=== PATIENT | female | born 1995 | race Asian ===

== ENCOUNTER 2017-08-26 21:30 | Emergency (ER) | payer OTHER ==
[2017-08-26] MEDS ORDERED: NS 0.9% 1000 ML* 1,000 ML IV ONE (22:12)
[2017-08-26] MEDS ORDERED: methylPREDNISolone SOD 40 MG* 1 ML VIAL IV ONE (22:17)
[2017-08-26 23:00] LABS: ABS Basophils 0 10^3/ul (0-0.2); ABS Eosinophils 0.1 10^3/ul (0-0.6); ABS Lymphocytes 2.9 10^3/ul (1.0-4.8); ABS Monocytes 0.4 10^3/ul (0-0.8); ABS Neutrophils 2.8 10^3/ul (1.5-7.7); ABS Nucleated RBC 0 10^3/ul; Eosinophil % 1.6 % (0-6); Hematocrit 40 % (35-47); Hemoglobin 13.4 g/dl (12.0-16.0); Mean Corpuscular HGB Conc 33 g/dl (31-36); Mean Corpuscular Hemoglobin 31 pg (27-31); Mean Corpuscular Volume 93 fL (80-97); Mean Platelet Volume 8 um3 (7.4-10.4); Nucleated Red Blood Cells % 0.1; Platelet Count 301 10^3/ul (150-450); Red Blood Count 4.33 10^6/ul (4.0-5.4); Red Cell Distribution Width 13 % (10.5-15); White Blood Count 6.2 10^3/ul (3.5-10.8)
--- NOTE | 2017-08-26 23:00 | ED ---
Addy Xavier Stephanie, scribed for Edilberto Malone MD on 08/26/17 at 2216 . Skin Complaint - HPI Summary HPI Summary: The pt is a 22 y/o F presenting to the ED with c/o generalized rash/hives that began 2 days ago. The pt states she has hx or rash with an unknown trigger. Pt recently prescribed antibiotic from [place] for Cystitis. Pt unsure of name of antibiotic. Pt denies angioedema, rash in mouth, SOB, joint pain, hair loss and wheezing. Pt believes the rash starts after showering with hot water. - History of Current Complaint Chief Complaint: EDAllergicReaction Time Seen by Provider: 08/26/17 21:59 Stated Complaint: ALLERGIC REACTION Hx Obtained From: Patient Onset/Duration: Started Days Ago - 2 Timing: Constant Current Severity: None Pain Intensity: 0 Pain Scale Used: 0-10 Numeric Character: Exposure to Heat Intermittent Aggravating Symptom(s): Showering - hot water Alleviating Symptom(s): Nothing Associated Signs & Symptoms: Rash - Allergy/Home Medications Allergies/Adverse Reactions: Allergies Allergy/AdvReac Type Severity Reaction Status Date / Time No Known Allergies Allergy Verified 08/26/17 21:55 PMH/Surg Hx/FS Hx/Imm Hx Sensory History: Reports: Hx Contacts or Glasses EENT History: Denies: Hx Deafness - Surgical History Surgery Procedure, Year, and Place: none Infectious Disease History: No Infectious Disease History: Reports: Traveled Outside the [place] in Last 30 Days - Family History Known Family History: Positive: Unknown - Reviewed and non-contributory - Social History Occupation: Student Lives: Dormitory/Roommates Alcohol Use: Rare Review of Systems Positive: Fever, Other - negative: hair loss Positive: Other - Negative:rash in mouth Positive: Other - Negative: wheezing. Negative: Shortness Of Breath Positive: Other - Negative: joint pain Positive: Rash - with itching All Other Systems Reviewed And Are Negative: Yes Physical Exam - Summary Physical Exam Summary: Appearance: Well-appearing, Well-nourished Skin: Warm, Dry, large urticaria over arms, face, back, abd. Eyes: Normal, PERRL, EOMI, sclera anicteric ENT: Normal, No swelling in pharynx Neck: Supple, nontender Respiratory: Clear to auscultation Cardiovascular: S1, S2, no murmur, no rub, no gallop Abdomen: Soft, nontender, no organomegaly Bowel sounds: Present Musculoskeletal: Normal, Strength/ROM Intact, no edema, pulses symmetrical Neurological: Normal, A&Ox3, cranial nerves II-XII WNL, follows commands, gait not tested, sensation intact to pin and light touch Psychiatric: affect normal, behavior appropriate, dressed appropriately, judgment intact Triage Information Reviewed: Yes Vital Signs On Initial Exam: Initial Vitals Temp Pulse Resp BP Pulse Ox 99.9 F 80 16 113/77 98 08/26/17 21:45 08/26/17 21:45 08/26/17 21:45 08/26/17 21:45 08/26/17 21:45 Vital Signs Reviewed: Yes Diagnostics - Vital Signs Vital Signs Temp Pulse Resp BP Pulse Ox 08/26/17 21:45 99.9 F 80 16 113/77 98 - Laboratory Lab Statement: Any lab studies that have been ordered have been reviewed, and results considered in the medical decision making process. Re-Evaluation - Re-Evaluation First Eval Re-Evaluation Time: 22:53 Change: Unchanged - Facial urticaria unchaged. Course/Dx - Course Course Of Treatment: Facial urticaria unchanged at re-eval. The pt will be a sign out to Dr. Casanova at shift change pending dispo. - Diagnoses Provider Diagnoses: urticatia, possibly abx related Discharge - Discharge Plan Condition: Stable Disposition: OTHER Discharge Disposition Comment: The pt is signed out to Dr. Casanova at shift change pending dispo. The documentation as recorded by the Addy swanson Stephanie accurately reflects the service I personally performed and the decisions made by me, Edilberto Malone MD.
[2017-08-26 23:14] LABS: EGFR Non-African American 126.2 (>60)
[2017-08-26] MEDS ORDERED: diPHENhydraMINE IV* 50 MG/ML 1 ml VIAL (BENADRYL) IV ONE (23:31)
[2017-08-26] MEDS ORDERED: hydrOXYzine HCL TAB* 50 MG PO ONE (23:55)
[2017-08-26] MEDS ORDERED: methylPREDNISolone 125 MG* 2 ML VIAL IV ONE (23:55)
[2017-08-26] MEDS ORDERED: EPINEPHrine AMP 1 MG/ML IM ONE (23:55)
--- NOTE | 2017-08-27 01:29 | ED ---
Irena Xavier Gabriel, scribed for Daniel Casanova MD on 08/27/17 at 0121 . Progress - Progress Note Progress Note: This patient was signed out from Dr. Malone, pending disposition, awaiting to see how she respond to her treatment. The patients condition is stable and will be discharged to home with Dx of allergic reaction. Re-Evaluation - Re-Evaluation First Eval Re-Evaluation Time: 22:53 Change: Unchanged - Facial urticaria unchaged. Second Eval Re-Evaluation Time: 01:20 Change: Improved - The patient feels better, her rash has resolved as well as the itching. Course/Dx - Diagnoses Provider Diagnoses: Allergic reaction The documentation as recorded by the Irena swanson Gabriel accurately reflects the service I personally performed and the decisions made by , Daniel Casanova MD.
[2017-08-27 02:24] VITALS: BP 116/73
== END 2017-08-27 02:30 ==
LOC: ED 21:30
DX: L50.9 Urticaria, unspecified (principal); R50.9 Fever, unspecified; R21 Rash and other nonspecific skin eruption
CPT/HCPCS: 36415; 80053; 85025; 85652; 86038; 96372; 96374; 96375; 99284; A9270-GY; J0171; J1200; J2920; J2930

== ENCOUNTER 2017-08-27 21:39 | Emergency (ER) | payer OTHER ==
[2017-08-27] MEDS ORDERED: predniSONE TAB* 20 MG PO ONE (22:11)
[2017-08-27] MEDS ORDERED: hydrOXYzine HCL TAB* 25 MG PO ONE (22:12)
--- NOTE | 2017-08-27 22:58 | ED ---
Irena Xavier Gabriel, scribed for Daniel Casanova MD on 08/27/17 at 2223 . Allergic Reaction/Systemic - HPI Summary HPI Summary: This patient is a 22 year old F presenting to [facility] accompanied by her friends with a chief complaint of hives since 1900 tonight. The patient rates the pain 1 /10 in severity. Patient reports chills and pain. Patient denies itching. The patient was seen in the ED last night for a reaction to an antibiotic and was sent home after they resolved with a Rx. She did not pickup her Rx and the hives have returned. - History of Current Complaint Chief Complaint: EDRashSkinAbscess Time Seen by Provider: 08/27/17 21:54 Hx Obtained From: Patient Onset/Duration: Started hours ago, Still Present Timing: Intermittent Severity Initially: Mild Severity Currently: Mild Pain Intensity: 1 Pain Scale Used: 0-10 Numeric Character: Hives Aggravating Factor(s): Heat Associated Signs And Symptoms: Positive: Negative - itching, Other: - chills - Allergies/Home Medications Allergies/Adverse Reactions: Allergies Allergy/AdvReac Type Severity Reaction Status Date / Time No Known Allergies Allergy Verified 08/26/17 21:55 PMH/Surg Hx/FS Hx/Imm Hx Endocrine/Hematology History: Denies: Hx Diabetes Cardiovascular History: Denies: Hx Cardiomegaly, Hx Congenital Heart Disease Respiratory History: Denies: Hx Asthma, Hx Chronic Obstructive Pulmonary Disease (COPD) Sensory History: Reports: Hx Contacts or Glasses Denies: Hx Deafness Opthamlomology History: Reports: Hx Contacts or Glasses Neurological History: Denies: Hx CVA, Hx Dementia - Surgical History Surgery Procedure, Year, and Place: none Infectious Disease History: No Infectious Disease History: Reports: Traveled Outside the [place] in Last 30 Days - Family History Known Family History: Negative: Cardiac Disease, Hypertension, Diabetes, Renal Disease, Respiratory Disease, Seizure Disorder, Blood Disorder - Social History Occupation: Student Lives: Dormitory/Roommates Alcohol Use: Rare Substance Use Type: Reports: None Smoking Status (MU): Never Smoked Tobacco Review of Systems Positive: Chills Skin: Negative - itching Positive: Rash - that is painful All Other Systems Reviewed And Are Negative: Yes Physical Exam - Summary Physical Exam Summary: VITAL SIGNS: Reviewed. GENERAL: Patient is a well-developed and nourished (MALE OR FEMALE) who is lying comfortable in the stretcher. Patient is not in any acute respiratory distress. HEAD AND FACE: No signs of trauma. No ecchymosis, hematomas or skull depressions. No sinus tenderness. EYES: PERRLA, EOMI x 2, No injected conjunctiva, no nystagmus. EARS: Hearing grossly intact. Ear canals and tympanic membranes are within normal limits. MOUTH: Oropharynx within normal limits. NECK: Supple, trachea is midline, no adenopathy, no JVD, no carotid bruit, no c- spine tenderness, neck with full ROM. CHEST: Symmetric, no tenderness at palpation LUNGS: Clear to auscultation bilaterally. No wheezing or crackles. CVS: Regular rate and rhythm, S1 and S2 present, no murmurs or gallops appreciated. ABDOMEN: Soft, non-tender. No signs of distention. No rebound no guarding, and no masses palpated. Bowel sounds are normal. EXTREMITIES: FROM in all major joints, no edema, no cyanosis or clubbing. NEURO: Alert and oriented x 3. No acute neurological deficits. Speech is normal and follows commands. SKIN: Scattered macula rash Triage Information Reviewed: Yes Vital Signs On Initial Exam: Initial Vitals Temp Pulse Resp BP Pulse Ox 98.1 F 76 16 133/76 99 08/27/17 21:46 08/27/17 21:46 08/27/17 21:46 08/27/17 21:46 08/27/17 21:46 Vital Signs Reviewed: Yes Diagnostics - Vital Signs Vital Signs Temp Pulse Resp BP Pulse Ox 08/27/17 22:01 86 99 08/27/17 22:00 121/70 08/27/17 21:59 115/71 08/27/17 21:46 98.1 F 76 16 133/76 99 - Laboratory Lab Statement: Any lab studies that have been ordered have been reviewed, and results considered in the medical decision making process. Allergic Reaction Course/Dx - Course Assessment/Plan: This patient is a 22 year old F presenting to [facility] accompanied by her friends with a chief complaint of hives since 1900 tonight. The patient rates the pain 1/10 in severity. Patient reports chills and pain. Patient denies itching. The patient was seen in the ED last night for a reaction to an antibiotic and was sent home after they resolved with a Rx. She did not pickup her Rx and the hives have returned. In the ED course the patient was given atarax and deltasone. Dx allergic reaction. Patient will be discharged and advised to picker/puller her Rx and use it. The patient is agreeable with this plan. - Diagnoses Provider Diagnoses: Allergic reaction Discharge - Discharge Plan Condition: Stable Disposition: HOME Referrals: [facility] - Nikos GARAY [Primary Care Provider] - 4 Days Additional Instructions: Please picker/puller your prescription and use it as directed. RETURN TO EMERGENCY DEPARTMENT FOR ANY NEW OR WORSENING SYMPTOMS The documentation as recorded by the Irena swanson Gabriel accurately reflects the service I personally performed and the decisions made by , Daniel Casanova MD.
[2017-08-27 23:17] VITALS: BP 98/60
== END 2017-08-27 23:10 | disposition home or self-care (01) ==
LOC: ED 21:39
DX: T78.40XA Allergy, unspecified, initial encounter (principal); R21 Rash and other nonspecific skin eruption; X58.XXXA Exposure to other specified factors, initial encounter
CPT/HCPCS: 99282; A9270-GY; J7512